=== PATIENT | male | born 1965 | race American Indian/Alaskan Native ===

== ENCOUNTER 2018-10-28 16:35 | Emergency (ER) | payer MEDICAID ==
[2018-10-28 16:36] VITALS: BMI 34.1
[2018-10-28 16:58] VITALS: RESP 18
[2018-10-28] MEDS ORDERED: Vancomycin 1gm in NS 250ml 1 GM/250 ML BAG IVPB STA (17:24)
[2018-10-28] MEDS ORDERED: Piperacillin/Tazobact 3.375 gm 100 ML IVPB STA (17:25)
[2018-10-28] MEDS ORDERED: TDAP Vaccine 0.5 mL Syr IM ONE (17:25)
--- NOTE | 2018-10-28 17:29 | ED PDOC ---
Arrival/HPI - General Chief Complaint: Lower Extremity Problem/Injury Historian: Patient - History of Present Illness Narrative History of Present Illness (Text): 10/28/18 17:26 53 y/o male, no significant pmh, nkda, last tetanus doesn't remember, c/o rt. tibia/fibula injury x 4 days with abrasion and swelling/redness. Pt. stated that he accidentally hit on the edge of the metal frame about 4 days ago, had avulsion and abrasion, been having pain, noticed redness yesterday, no fever or chills, no skin tightening, no numbness or tingling, no cold extremity, no night sweat, no numbness or tingling, no other medical or psychological complaints. Past Medical History - Provider Review Nursing Documentation Reviewed: Yes - Infectious Disease Hx of Infectious Diseases: None - Tetanus Immunization Tetanus Immunization: Up to Date - Cardiac Hx Cardiac Disorders: No - Pulmonary Hx Respiratory Disorders: No - Neurological Hx Neurological Disorder: No - HEENT Hx HEENT Disorder: No - Renal Other/Comment: left nephrectomy, pt donated a kidney - Endocrine/Metabolic Hx Endocrine Disorders: No - Hematological/Oncological Hx Blood Disorders: No - Integumentary Hx Dermatological Disorder: No - Musculoskeletal/Rheumatological Hx Musculoskeletal Disorders: No - Gastrointestinal Hx Gastrointestinal Disorders: No - Genitourinary/Gynecological Hx Genitourinary Disorders: No - Psychiatric Hx Psychophysiologic Disorder: No Hx Substance Use: No - Surgical History Other/Comment: left nephrectomy (pt donated kidney) - Anesthesia Hx Anesthesia: Yes Hx Anesthesia Reactions: No Hx Malignant Hyperthermia: No - Suicidal Assessment Feels Threatened In Home Enviroment: No Family/Social History - Physician Review Nursing Documentation Reviewed: Yes Family/Social History: Unknown Family HX Smoking Status: Never Smoked Hx Alcohol Use: No Hx Substance Use: No Hx Substance Use Treatment: No Allergies/Home Meds Allergies/Adverse Reactions: Allergies No Known Allergies Allergy (Verified 06/09/16 14:55) Review of Systems - Review of Systems Constitutional: absent: Fatigue, Fevers Eyes: absent: Vision Changes ENT: absent: Hearing Changes Respiratory: absent: SOB, Cough Cardiovascular: absent: Chest Pain Gastrointestinal: absent: Abdominal Pain, Nausea, Vomiting Skin: Cellulitis (healing abrasion). absent: Rash, Pruritis, Skin Lesions, Abscess, Ulcer Neurological: absent: Headache, Dizziness Psychiatric: absent: Anxiety, Depression, Suicidal Ideation Physical Exam Vital Signs Reviewed: Yes Vital Signs Temp Pulse Resp BP Pulse Ox 10/28/18 16:53 98.7 F 84 18 123/65 98 Temperature: Afebrile Blood Pressure: Normal Pulse: Regular Respiratory Rate: Normal Appearance: Positive for: Well-Appearing, Non-Toxic, Comfortable Pain Distress: Moderate Mental Status: Positive for: Alert and Oriented X 3 - Systems Exam Head: Present: Atraumatic, Normocephalic Pupils: Present: PERRL Extroacular Muscles: Present: EOMI Conjunctiva: Present: Normal Mouth: Present: Moist Mucous Membranes Neck: Present: Normal Range of Motion Respiratory/Chest: Present: Clear to Auscultation, Good Air Exchange. No: Respiratory Distress, Accessory Muscle Use Cardiovascular: Present: Regular Rate and Rhythm, Normal S1, S2. No: Murmurs Abdomen: No: Tenderness, Distention, Peritoneal Signs Back: Present: Normal Inspection Upper Extremity: Present: Normal Inspection. No: Cyanosis, Edema Lower Extremity: Present: Normal Inspection, Other (Rt. tibia/fibular: mid anterior tibial shaft region noted to have approx. [id number] swelling with 3cm healing abrasion and mild erythematous on the surrounding with cellulitis, no streaking, no joint tenderness or swelling, FROM without limitation, sensation intact, motor 5/5, +DPPT pulses, capillary refill< 2 seconds, neurovascular intact. ). No: Edema Neurological: Present: GCS=15, CN II-XII Intact, Speech Normal Skin: Present: Warm, Dry, Normal Color. No: Rashes Psychiatric: Present: Alert, Oriented x 3, Normal Insight, Normal Concentration Medical Decision Making ED Course and Treatment: 10/28/18 17:29 -labs -xray -IV toradol/vanco/zosyn -Observe and reassess 10/28/18 18:15 -wound irrigated with saline, clean with betadine, bacitracin and gauze dressing -labs are non-significant with no elevation of wbc, no DM, stable for outpatient antibiotic. -Rt. tibia/fibula xray: Unremarkable radiographs of the right tibia and fibula. -All labs and radiology results discussed with the patient. -Discharge home with clindamycin, motrin, ice compression, clean with hydrogen peroxide twice daily then neosporin, wound needs to be rechecked in 2 days by the ER or your own pmd, return to the ER for any new or worsening signs or symptoms. - RAD Interpretation Radiology Orders: 10/28/18 17:25 TIBIA FIBULA RIGHT [RAD] Stat -Rt. tibia/fibula xray: Date of service: 10/28/2018 PROCEDURE: Radiographs of the right tibia and fibula. HISTORY: rt. tibia/fibula injury COMPARISON: None available TECHNIQUE: Frontal and lateral views obtained. FINDINGS: BONES: No fracture or destructive lesion. JOINT SPACES: Unremarkable. OTHER FINDINGS: None. IMPRESSION: Unremarkable radiographs of the right tibia and fibula. Ec Teacher: Radiologist - Medication Orders Current Medication Orders: Vancomycin HCl (Vancomycin 1gm) 1 gm in 250 mls @ 167 mls/hr IVPB STAT STA; Protocol Stop: 10/28/18 18:53 Piperacillin Sod/Tazobactam Sod (Zosyn 3.375 In Ns 100ml) 100 mls @ 200 mls/hr IVPB STAT STA; Protocol Stop: 10/28/18 17:54 Ketorolac Tromethamine (Toradol) 30 mg IVP STAT STA Stop: 10/28/18 17:26 - PA / [employer] / Resident Statement / has reviewed & agrees with the documentation as recorded. Disposition/Present on Arrival - Present on Arrival Any Indicators Present on Arrival: No History of DVT/PE: No History of Uncontrolled Diabetes: No Urinary Catheter: No History of Decub. Ulcer: No History Surgical Site Infection Following: None - Disposition Have Diagnosis and Disposition been Completed?: Yes Diagnosis: Cellulitis, leg, Leg abrasion Disposition: HOME/ ROUTINE Disposition Time: 18:14 Patient Plan: Discharge Patient Problems: Current Active Problems Problem Status Onset Cellulitis, leg Acute Leg abrasion Acute Condition: GOOD Discharge Instructions (ExitCare): Cellulitis (ED) Additional Instructions: -Discharge home with clindamycin, motrin, ice compression, clean with hydrogen peroxide twice daily then neosporin, wound needs to be rechecked in 2 days by the ER or your own pmd, return to the ER for any new or worsening signs or symptoms. Prescriptions: Clindamycin [Cleocin] 300 mg PO QID #40 cap Ibuprofen [Motrin Tab] 600 mg PO QID PRN #30 tab PRN Reason: Other Referrals: [facility] [place] [facility] [place] - Follow up with primary Forms: [facility] (French), WORK NOTE
[2018-10-28 18:01] LABS: BASO # 0.02 K/mm3 (0.0-2.0); BASO % 0.3 % (0.0-3.0); EOS # 0.1 (0.0-0.7); EOS % 1.8 % (1.5-5.0); GRAN # 3.92 (1.4-6.5); GRAN % 52.9 % (50.0-68.0); LYMPH # 2.3 (1.2-3.4); LYMPH % 31.1 % (22.0-35.0); MEAN CELL VOLUME 90.2 fl (80.0-105.0); MEAN CORPUSCULAR HEMOGLOBIN 30.2 pg (25.0-35.0); MEAN CORPUSCULAR HGB CONC 33.5 g/dl (31.0-37.0); MONO % 13.9 % (1.0-6.0); RBC 4.3 10^6/uL (3.5-6.1); RED CELL DISTRIBUTION WIDTH 12.2 % (11.5-14.5); WHITE BLOOD COUNT 7.4 10^3/uL (4.5-11.0)
[2018-10-28 18:11] LABS: ALB/GLOB RATIO 1.2 (1.1-1.8); ALBUMIN 4.4 g/dL (3.0-4.8); ALT/SGPT 55 U/L (7-56); AST/SGOT 52 U/L (17-59); BLOOD UREA NITROGEN 18 mg/dL (7-21); GFR NON-AFRICAN AMERICAN > 60
--- NOTE | 2018-10-28 18:43 | RAD ---
Date of service: 10/28/2018 PROCEDURE: Radiographs of the right tibia and fibula. HISTORY: rt. tibia/fibula injury COMPARISON: None available TECHNIQUE: Frontal and lateral views obtained. FINDINGS: BONES: No fracture or destructive lesion. JOINT SPACES: Unremarkable. OTHER FINDINGS: None. IMPRESSION: Unremarkable radiographs of the right tibia and fibula. Concordant results with the preliminary interpretation rendered by the emergency department physician procedure.
[2018-10-28 18:55] VITALS: TEMP 98.8
[2018-10-28 20:53] VITALS: BP 127/75; PULSE 71; O2SAT 100
== END 2018-10-28 20:35 | disposition home or self-care (01) ==
LOC: ED 16:35
DX: S80.811A Abrasion, right lower leg, initial encounter (principal); L03.115 Cellulitis of right lower limb; X58.XXXA Exposure to other specified factors, initial encounter
CPT/HCPCS: 73590; 80053; 85025; 90471; 90715; 96365; 96366; 96367; 96375; 99285; J1885; J2543